=== PATIENT | male | born 1955 | race Hispanic/Latino ===

== ENCOUNTER 2016-12-27 17:48 | Observation (INO) | payer MEDICAID ==
[2016-12-27 18:25] LABS: BASO # 0.01 K/mm3 (0.0-2.0); BASO % 0.2 % (0.0-3.0); EOS % 0.6 % (1.5-5.0); GRAN # 3.22 (1.4-6.5); GRAN % 62.9 % (50.0-68.0); LYMPH # 1.3 (1.2-3.4); LYMPH % 25.8 % (22.0-35.0); MEAN CELL VOLUME 63.3 fl (80.0-105.0); MEAN CORPUSCULAR HEMOGLOBIN 20.7 pg (25.0-35.0); MEAN CORPUSCULAR HGB CONC 32.7 g/dl (31.0-37.0); MEAN PLATELET VOLUME 10.1 fl (7.0-11.0); MONO # 0.5 (0.1-0.6); MONO % 10.5 % (1.0-6.0); WHITE BLOOD COUNT 5.1 10^3/ul (4.5-11.0)
[2016-12-27 18:34] LABS: ALB/GLOB RATIO 1.5 (1.1-1.8); ALKALINE PHOSPHATASE 51 U/L (38-126); ALT/SGPT 28 U/L (7-56); AST/SGOT 19 U/L (17-59); BILIRUBIN,TOTAL 0.9 mg/dL (0.2-1.3); BLOOD UREA NITROGEN 23 mg/dL (7-21); CALCIUM 9.3 mg/dL (8.4-10.5); CARBON DIOXIDE 24 mmol/L (21-33); CHLORIDE 102 mmol/L (98-107); GFR AFRICAN-AMERICAN > 60; GLUCOSE,RANDOM 126 mg/dL (70-110); LIPASE 123 U/L (23-300); POTASSIUM 3.7 mmol/L (3.6-5.0); SODIUM 137 mmol/L (132-148); TOTAL PROTEIN 7.4 g/dL (5.8-8.3)
[2016-12-27 18:38] LABS: INR 1.16 (0.93-1.08); PARTIAL THROMBOPLASTIN TIME 26.2 Seconds (25.1-36.5)
[2016-12-27 18:45] LABS: TROPONIN I 0.03 ng/mL
--- NOTE | 2016-12-27 18:45 | ED PDOC ---
Arrival/HPI - General Chief Complaint: Chest Pain Time Seen by Provider: 12/27/16 17:50 Historian: Patient - History of Present Illness Narrative History of Present Illness (Text): 12/27/16 18:06 A 61 year old male, whose past medical history includes rheumatic fever, CABG, valve replacement, GERD, hypertension, and diabetes, presents to the emergency department complaining of epigastric pain beginning earlier today. Patient reports pain radiates to the chest. He had nausea earlier which resolved but the cp is still there. Patient states he experienced similar symptoms last week. He went to [facility] to have himself checked out, and results revealed it was a myocardial infarction. As a result, patient reports that he had 2 LAD stents placed in 5 days ago. Patient also notes experiencing nausea, but denies any vomiting, dizziness, or any other complaints at this time. No PMD Symptom Onset: Sudden Symptom Course: Unchanged Past Medical History - Provider Review Nursing Documentation Reviewed: Yes - Cardiac Hx AK: Yes Other/Comment: sx of aorta replacement valve - Psychiatric Hx Substance Use: No - Surgical History Hx Coronary Stent: Yes (x 4) Other/Comment: Cardiac bypass - Anesthesia Hx Anesthesia: Yes Hx Anesthesia Reactions: No Hx Malignant Hyperthermia: No Family/Social History - Physician Review Nursing Documentation Reviewed: Yes Family/Social History: No Known Family HX Smoking Status: Never Smoked Hx Alcohol Use: No Hx Substance Use: No Allergies/Home Meds Allergies/Adverse Reactions: Allergies No Known Allergies Allergy (Unverified 12/27/16 18:00) Home Medications: Home Meds Medication Instructions Recorded Confirmed Aspirin [Lo-Dose Aspirin EC] 81 mg PO DAILY 12/27/16 12/27/16 Clopidogrel [Plavix] 75 mg PO DAILY 12/27/16 12/27/16 Lisinopril [Zestril] 2.5 mg PO DAILY 12/27/16 12/27/16 Metoprolol Succinate [Toprol XL] 12.5 mg PO DAILY 12/27/16 12/27/16 Simvastatin [Zocor] 40 mg PO DAILY 12/27/16 12/27/16 Review of Systems - Physician Review All systems were reviewed & negative as marked: Yes - Review of Systems Cardiovascular: Chest Pain (radiating from epigastric pain) Gastrointestinal: Abdominal Pain (epigastric pain radiating to chest), Nausea. absent: Vomiting Neurological: absent: Dizziness Physical Exam Vital Signs Reviewed: Yes Vital Signs Temp Pulse Pulse Resp BP Pulse Ox 12/27/16 20:13 98.1 F 71 18 100 12/27/16 18:16 70 12/27/16 18:01 98.0 F 73 18 124/79 100 Temperature: Afebrile Blood Pressure: Normal Pulse: Regular Respiratory Rate: Normal Appearance: Positive for: Well-Appearing Pain Distress: None Mental Status: Positive for: Alert and Oriented X 3 - Systems Exam Head: Present: Atraumatic, Normocephalic Pupils: Present: PERRL Conjunctiva: Present: Normal Mouth: Present: Moist Mucous Membranes Pharnyx: Present: Normal. No: ERYTHEMA, EXUDATE Neck: Present: Normal Range of Motion Respiratory/Chest: Present: Clear to Auscultation, Good Air Exchange. No: Respiratory Distress, Accessory Muscle Use Cardiovascular: Present: Regular Rate and Rhythm, Normal S1, S2. No: Murmurs Abdomen: Present: Normal Bowel Sounds. No: Tenderness, Distention, Peritoneal Signs Back: Present: Normal Inspection Upper Extremity: Present: Normal Inspection. No: Cyanosis, Edema Lower Extremity: Present: Normal Inspection. No: Edema Neurological: Present: GCS=15, CN II-XII Intact, Speech Normal Skin: Present: Warm, Dry, Normal Color. No: Rashes Psychiatric: Present: Alert, Oriented x 3, Normal Insight, Normal Concentration Medical Decision Making ED Course and Treatment: 12/27/16 18:12 Impression: 61 year old male with epigastric pain radiating to chest. No acute findings on physical exam. Differential: GI vs ACS Plan: -- Chest X-ray -- Labs -- Protonix -- Urinalysis -- Reassess and disposition Progress Notes: 12/27/2016 18:55 Chest X-ray IMPRESSION: Cardiomegaly versus technical magnification. No pulmonary vascular derangement. Trace bilateral pleural effusions versus fibrosis. No definite airspace disease bilaterally. Dictator: Stiven Jim MD EKG: NSR @ 73 with LVH; QRS is 116 with normal axis; inverted T waves are present inferolaterally; no old ekg for comparison. 12/27/16 20:34 Patient given protonix and asa with improvement of symptoms. What is concerning is his recent history last week of similar symptoms which according to him was a AK requiring LAD stent placement. Patient with known CAD and recent AK with such chest pain will require further observation on tele and cardiology eval. Discussed with Dr. Dodd for placement on the hospitalist's service. - Lab Interpretations Lab Results: 12/27/16 18:11 12/27/16 18:11 Lab Results 12/27/16 18:11: Sodium 137, Potassium 3.7, Chloride 102, Carbon Dioxide 24, Anion Gap 15, BUN 23 H, Creatinine 0.8, Est GFR ( Amer) > 60, Est GFR ( Non-Af Amer) > 60, Random Glucose 126 H, Calcium 9.3, Magnesium 2.0, Total Bilirubin 0.9, AST 19, ALT 28, Alkaline Phosphatase 51, Lactate Dehydrogenase 374, Total Creatine Kinase 65, Troponin I 0.03, NT-Pro-B Natriuret Pep 237, Total Protein 7.4, Albumin 4.5, Globulin 2.9, Albumin/Globulin Ratio 1.5, Lipase 123 12/27/16 18:11: PT 12.7 H, INR 1.16 H, APTT 26.2 12/27/16 18:11: WBC 5.1, RBC 5.21, Hgb 10.8 L, Hct 33.0 L, MCV 63.3 L, MCH 20.7 L, MCHC 32.7, RDW 16.0 H, Plt Count 211, MPV 10.1, Gran % 62.9, Lymph % (Auto) 25.8, Mccone % (Auto) 10.5 H, Eos % (Auto) 0.6 L, Baso % (Auto) 0.2, Gran # 3.22, Lymph # 1.3, Mccone # 0.5, Eos # 0.0, Baso # 0.01 I have reviewed the lab results: Yes - RAD Interpretation Radiology Orders: 12/27/16 18:00 CHEST PORTABLE [RAD] Stat - Medication Orders Current Medication Orders: Discontinued Medications Aspirin (Aspirin Chewable) 324 mg PO STAT STA Stop: 12/27/16 19:44 Last Admin: 12/27/16 19:58 Dose: Not Given Non-Admin Reason: Patient Refused Pantoprazole Sodium (Protonix Inj) 40 mg IVP ONCE STA Stop: 12/27/16 18:02 Last Admin: 12/27/16 18:25 Dose: 40 mg IVP Administration Document 12/27/16 18:25 [email or web address] (Rec: 12/27/16 18:26 [email or web address] [facility] [id number]) Charges for Administration # of IVP Administrations 1 - Scribe Statement The provider has reviewed the documentation as recorded by the Sophia Gay Provider Scribe Attestation: All medical record entries made by the Scribe were at my direction and personally dictated by me. I have reviewed the chart and agree that the record accurately reflects my personal performance of the history, physical exam, medical decision making, and the department course for this patient. I have also personally directed, reviewed, and agree with the discharge instructions and disposition. Disposition/Present on Arrival - Present on Arrival Any Indicators Present on Arrival: No History of DVT/PE: No History of Uncontrolled Diabetes: No Urinary Catheter: No History of Decub. Ulcer: No History Surgical Site Infection Following: None - Disposition Have Diagnosis and Disposition been Completed?: Yes Diagnosis: Chest pain Disposition: HOSPITALIZED Disposition Time: 20:10 Patient Plan: Observation, Telemetry Condition: FAIR
--- NOTE | 2016-12-27 18:57 | RAD ---
HISTORY: cp COMPARISON: No prior. FINDINGS: LUNGS: No active pulmonary disease. PLEURA: Bilateral trace pleural effusions versus fibrosis blunts both costophrenic sulci. CARDIOVASCULAR: Prominent cardiac silhouette is questioned though they may be technically magnified. No pulmonary derangement appreciated. OSSEOUS STRUCTURES: No significant abnormalities. VISUALIZED UPPER ABDOMEN: Normal. OTHER FINDINGS: None. IMPRESSION: Cardiomegaly versus technical magnification. No pulmonary vascular derangement. Trace bilateral pleural effusions versus fibrosis. No definite airspace disease bilaterally.
[2016-12-27 19:57] LABS: URINE BILIRUBIN NEGATIVE (NEGATIVE); URINE BLOOD NEGATIVE (NEGATIVE); URINE GLUCOSE (UA) NEGATIVE (NEGATIVE); URINE KETONE NEGATIVE (NEGATIVE); URINE LEUKOCYTE ESTERASE NEGATIVE Leu/uL (NEGATIVE); URINE PROTEIN NEGATIVE mg/dL (<30 mg/dL); URINE UROBILINOGEN 0.2 E.U./dL (<1 E.U./dL)
[2016-12-27 20:00] LABS: URINE APPEARANCE CLEAR (CLEAR); URINE COLOR YELLOW (YELLOW)
--- NOTE | 2016-12-27 21:06 | CP.PCM.HP ---
<Ayo Schuler - Last Filed: 12/27/16 22:54> History of Present Illness - History of Present Illness History of Present Illness: 61 year old male with past medical history of Rheumatic fever as child, CABG, Aortic Valve replacement, GERD, HTN, DM presents to the ED with epigastric pain and slight chest discomfort. Patient states he was at work today around 6pm when he felt pins and needles in his stomach which he also felt chest discomfort with. He took pepcid but it did not help relieve the pain. Patient states he had a similar episode last week for which he went to [facility] and it was determined he had an MA. As a result, patient received two stents in the LAD. When the patient had the pain today, he was in hid way back to [facility] but the pain was so bad he could not continue to drive and came in. Patient states that along with the pain in the stomach he had some nausea, but denied any vomiting. Patient denies shortness of breath, vomiting, fever, sore throat, nausea, abdominal pain or recent sick contacts. Past Medical History: Rheumatic fever as child, CABG, Aortic Valve replacement, GERD, HTN, DM Past Surgery: CABG, Aortic Valve replacement, cardiac stents Allergies: denies Social: denies alcohol, tobacco or illicit drug use Family History: denies Medications: Protonix, Aspirin, Plavix, Metoprolol, Lisinopril, Simvastatin Present on Admission - Present on Admission Any Indicators Present on Admission: No Review of Systems - Constitutional Constitutional: Chills. absent: Fever, Headache - EENT Eyes: absent: Change in Vision, Diplopia Ears: absent: Ear Pain Nose/Mouth/Throat: absent: Nasal Discharge, Sore Throat - Cardiovascular Cardiovascular: Chest Pain. absent: Dyspnea, Palpitations, Radiating Pain, Rapid Heart Rate, Syncope Additional comments: Chest Discomfort - Respiratory Respiratory: absent: Cough, Dyspnea, Chest Congestion - Gastrointestinal Gastrointestinal: Abdominal Pain, Belching, Nausea. absent: Vomiting - Genitourinary Genitourinary: Change in Urinary Stream, Difficulty Urinating - Musculoskeletal Musculoskeletal: absent: Arthralgias, Muscle Weakness, Numbness, Radiating Pain into Limb, Tingling - Integumentary Integumentary: absent: Rash - Neurological Neurological: absent: Headaches, Paresthesias, Tingling Past Patient History - Past Social History Smoking Status: Never Smoked - CARDIAC Hx Heart Attack: Yes Other/Comment: sx of aorta replacement valve - PSYCHIATRIC Hx Substance Use: No - SURGICAL HISTORY Hx Coronary Stent: Yes (x 4) Other/Comment: Cardiac bypass - ANESTHESIA Hx Anesthesia: Yes Hx Anesthesia Reactions: No Hx Malignant Hyperthermia: No Meds Allergies/Adverse Reactions: Allergies Allergy/AdvReac Type Severity Reaction Status Date / Time No Known Allergies Allergy Unverified 12/27/16 18:00 Physical Exam - Constitutional Appears: Non-toxic, No Acute Distress - Head Exam Head Exam: ATRAUMATIC, NORMAL INSPECTION, NORMOCEPHALIC - Eye Exam Eye Exam: EOMI, Normal appearance, PERRL Pupil Exam: NORMAL ACCOMODATION, PERRL - ENT Exam ENT Exam: Mucous Membranes Moist, Normal Exam - Neck Exam Neck exam: Positive for: Normal Inspection - Respiratory Exam Respiratory Exam: Clear to Auscultation Bilateral, NORMAL BREATHING PATTERN - Cardiovascular Exam Cardiovascular Exam: REGULAR RHYTHM, +S1, +S2 - GI/Abdominal Exam GI & Abdominal Exam: absent: Distended, Guarding, Tenderness - Extremities Exam Extremities exam: Positive for: pedal pulses present. Negative for: pedal edema - Neurological Exam Neurological exam: Alert, Oriented x3 - Skin Additional comments: healed CABG scar on chest Results - Vital Signs Recent Vital Signs: Last Vital Signs Temp 98.1 F 12/27/16 20:13 Pulse 71 12/27/16 20:13 Resp 18 12/27/16 20:13 BP 124/79 12/27/16 18:01 Pulse Ox 100 12/27/16 20:13 - Labs Result Diagrams: 12/27/16 18:11 12/27/16 18:11 Labs: Laboratory Results - last 24 hr 12/27/16 12/27/16 19:47 19:47 Urine Color Yellow Urine Appearance Clear Urine pH 6.0 Ur Specific [place] 1.015 Urine Protein Negative Urine Glucose (UA) Negative Urine Ketones Negative Urine Blood Negative Urine Nitrate Negative Urine Bilirubin Negative Urine Urobilinogen 0.2 Ur Leukocyte Esterase Negative Urine Opiates Screen Negative Urine Methadone Screen Negative Ur Barbiturates Screen Negative Ur Phencyclidine Scrn Negative Ur Amphetamines Screen Negative U Benzodiazepines Scrn Negative U Oth Cocaine Metabols Negative U Cannabinoids Screen Negative Assessment & Plan - Assessment and Plan (Free Text) Assessment: 61 year old male with past medical history of Rheumatic fever as child, CABG, Aortic Valve replacement, GERD, HTN, DM presents to the ED with epigastric pain and slight chest discomfort. Plan: 1. Epigastric Pain with Chest Discomfort-rule out ACS -EKG ordered and obtained, pending official read, NSR 73 bpm, widened QRS -Chest Xray ordered and obtained, cardiomegaly, pending official read -CBC and CMP within normal limits -initial trop .02, will repeat serial x2 -Will follow serial EKG Q6 x2 -continue ASA, Plavix, Metoprolol, Simvastatin -cardiology consulted, Fernieh, follow up recs -lipd panel pending -TSH pending -A1c Pending 2. HTN -BP 124/79 -continue home medications 3. DM questionable -A1C pending -insulin sliding scale low with accuchecks 4. Constipation -Colace 200mg BID -Lactulose PRN 5. GI/DVT -pantoprazole -lovenox <Ciro Dodd Q - Last Filed: 12/28/16 04:20> History of Present Illness - History of Present Illness History of Present Illness: CC: Abdominal pain + Nausea worsening over the past 1 day Results - Vital Signs Recent Vital Signs: Last Vital Signs Temp 97.6 F 12/28/16 00:01 Pulse 62 12/28/16 02:00 Resp 20 12/28/16 00:01 BP 116/74 12/28/16 00:01 Pulse Ox 94 L 12/28/16 00:01 - Labs Result Diagrams: 12/27/16 18:11 12/27/16 18:11 Labs: Laboratory Results - last 24 hr 12/27/16 12/27/16 12/28/16 19:47 19:47 00:30 Troponin I 0.03 Urine Color Yellow Urine Appearance Clear Urine pH 6.0 Ur Specific [place] 1.015 Urine Protein Negative Urine Glucose (UA) Negative Urine Ketones Negative Urine Blood Negative Urine Nitrate Negative Urine Bilirubin Negative Urine Urobilinogen 0.2 Ur Leukocyte Esterase Negative Urine Opiates Screen Negative Urine Methadone Screen Negative Ur Barbiturates Screen Negative Ur Phencyclidine Scrn Negative Ur Amphetamines Screen Negative U Benzodiazepines Scrn Negative U Oth Cocaine Metabols Negative U Cannabinoids Screen Negative Attending/Attestation - Attestation I have personally seen and examined this patient.: Yes I have fully participated in the care of the patient.: Yes I have reviewed all pertinent clinical information: Yes Notes (Text): 12/28/16 04:17 I agree with the above mentioned note and exam by the resident with the addition /exception of the followin61 y/o male with PMHx Aortic valve replacement 2007 secondary to history of rheumatic fever as a child, htn, dyslipidemia, ?DM and CAD with recent PCI + 2 stents placed to the LAD 5 days prior came to the ED with the complaint of indigestion/chest discomfort and sharp abdominal pain. Patient will be observed for cp to r/o ACS or in-stent thrombosis. Thus far he has had 2 negative cardiac enzymes and his pain has subsided.
[2016-12-27 21:38] LABS: CHOLESTEROL 167 mg/dL (130-200)
[2016-12-27] MEDS ORDERED: Enoxaparin 40 mg Syringe SC SCH (22:00)
[2016-12-27] MEDS: Metoprolol Succinate 25 mg XL Tab PO SCH ×2 (22:02→22:06)
[2016-12-27] MEDS: Insulin Lispro (humaLOG) LOW Coverage SC SCH (23:01)
[2016-12-27 23:51] VITALS: BMI 27.3
[2016-12-28 00:30] VITALS: RESP 20
[2016-12-28] MEDS ORDERED: Pantoprazole 40 mg EC Tab PO SCH (06:00)
[2016-12-28 06:23] LABS: BASO # 0.02 K/mm3 (0.0-2.0); BASO % 0.3 % (0.0-3.0); EOS # 0.1 (0.0-0.7); EOS % 1.5 % (1.5-5.0); GRAN # 3.23 (1.4-6.5); GRAN % 47.6 % (50.0-68.0); HEMATOCRIT 34.1 % (42.0-52.0); LYMPH # 2.7 (1.2-3.4); LYMPH % 40.3 % (22.0-35.0); MEAN CORPUSCULAR HEMOGLOBIN 20.1 pg (25.0-35.0); MEAN PLATELET VOLUME 9.7 fl (7.0-11.0); MONO # 0.7 (0.1-0.6); MONO % 10.3 % (1.0-6.0); RED CELL DISTRIBUTION WIDTH 16.3 % (11.5-14.5); WHITE BLOOD COUNT 6.8 10^3/ul (4.5-11.0)
[2016-12-28 06:37] VITALS: O2SAT 93
[2016-12-28 06:44] LABS: ALB/GLOB RATIO 1.4 (1.1-1.8); ALKALINE PHOSPHATASE 46 U/L (38-126); ALT/SGPT 32 U/L (7-56); AST/SGOT 19 U/L (17-59); BLOOD UREA NITROGEN 19 mg/dL (7-21); CALCIUM 9.5 mg/dL (8.4-10.5); CARBON DIOXIDE 28 mmol/L (21-33); CHLORIDE 107 mmol/L (98-107); GFR AFRICAN-AMERICAN > 60; GLUCOSE,RANDOM 109 mg/dL (70-110); SODIUM 140 mmol/L (132-148); TOTAL PROTEIN 6.8 g/dL (5.8-8.3)
[2016-12-28 06:53] LABS: TROPONIN I 0.03 ng/mL
[2016-12-28] MEDS: Insulin Lispro (humaLOG) LOW Coverage SC SCH ×3 (07:58→17:42)
[2016-12-28] MEDS: Metoprolol Succinate 25 mg XL Tab PO SCH ×3 (09:51→18:18)
[2016-12-28] MEDS ORDERED: Enoxaparin 40 mg Syringe SC SCH (10:00)
--- NOTE | 2016-12-28 15:25 | CP.PCM.DIS ---
<Taj Sandoval - Last Filed: 12/28/16 18:11> Provider - Provider Date of Admission: 12/27/16 19:43 Attending physician: Thuan Elizabeth MD Primary care physician: No PMD Consults: Cardiology: Dr. Lizandro Estrada Time Spent in preparation of Discharge (in minutes): 25 Hospital Course - Lab Results Lab Results: Most Recent Lab Values WBC 6.8 10^3/ul (4.5-11.0) D 12/28/16 06:00 RBC 5.41 10^6/uL (3.5-6.1) 12/28/16 06:00 Hgb 10.9 g/dL (14.0-18.0) L 12/28/16 06:00 Hct 34.1 % (42.0-52.0) L 12/28/16 06:00 MCV 63.0 fl (80.0-105.0) L 12/28/16 06:00 MCH 20.1 pg (25.0-35.0) L 12/28/16 06:00 MCHC 32.0 g/dl (31.0-37.0) 12/28/16 06:00 RDW 16.3 % (11.5-14.5) H 12/28/16 06:00 Plt Count 201 10^3/uL (120.0-450.0) 12/28/16 06:00 MPV 9.7 fl (7.0-11.0) 12/28/16 06:00 Gran % 47.6 % (50.0-68.0) L 12/28/16 06:00 Lymph % (Auto) 40.3 % (22.0-35.0) H 12/28/16 06:00 [place] % (Auto) 10.3 % (1.0-6.0) H 12/28/16 06:00 Eos % (Auto) 1.5 % (1.5-5.0) 12/28/16 06:00 Baso % (Auto) 0.3 % (0.0-3.0) 12/28/16 06:00 Gran # 3.23 (1.4-6.5) 12/28/16 06:00 Lymph # 2.7 (1.2-3.4) 12/28/16 06:00 [place] # 0.7 (0.1-0.6) H 12/28/16 06:00 Eos # 0.1 (0.0-0.7) 12/28/16 06:00 Baso # 0.02 K/mm3 (0.0-2.0) 12/28/16 06:00 PT 12.7 SECONDS (9.4-12.5) H 12/27/16 18:11 INR 1.16 (0.93-1.08) H 12/27/16 18:11 APTT 26.2 Seconds (25.1-36.5) 12/27/16 18:11 Sodium 140 mmol/L (132-148) 12/28/16 06:00 Potassium 4.0 mmol/L (3.6-5.0) 12/28/16 06:00 Chloride 107 mmol/L (98-107) 12/28/16 06:00 Carbon Dioxide 28 mmol/L (21-33) 12/28/16 06:00 Anion Gap 10 (10-20) 12/28/16 06:00 BUN 19 mg/dL (7-21) 12/28/16 06:00 Creatinine 0.8 mg/dl (0.8-1.5) 12/28/16 06:00 Est GFR ( Amer) > 60 12/28/16 06:00 Est GFR (Non-Af Amer) > 60 12/28/16 06:00 POC Glucose (mg/dL) 108 mg/dL (65-110) 12/28/16 07:57 Random Glucose 109 mg/dL (70-110) 12/28/16 06:00 Hemoglobin A1c 8.0 % (4.2-6.5) H 12/27/16 18:11 Calcium 9.5 mg/dL (8.4-10.5) 12/28/16 06:00 Magnesium 2.0 mg/dL (1.7-2.2) 12/27/16 18:11 Total Bilirubin 1.0 mg/dL (0.2-1.3) 12/28/16 06:00 AST 19 U/L (17-59) 12/28/16 06:00 ALT 32 U/L (7-56) 12/28/16 06:00 Alkaline Phosphatase 46 U/L (38-126) 12/28/16 06:00 Lactate Dehydrogenase 374 U/L (333-699) 12/27/16 18:11 Total Creatine Kinase 65 U/L (35-230) 12/27/16 18:11 Troponin I 0.03 ng/mL 12/28/16 06:00 NT-Pro-B Natriuret Pep 237 pg/mL (0-450) 12/27/16 18:11 Total Protein 6.8 g/dL (5.8-8.3) 12/28/16 06:00 Albumin 3.9 g/dL (3.0-4.8) 12/28/16 06:00 Globulin 2.8 gm/dL 12/28/16 06:00 Albumin/Globulin Ratio 1.4 (1.1-1.8) 12/28/16 06:00 Triglycerides 82 mg/dL (35-160) 12/27/16 18:11 Cholesterol 167 mg/dL (130-200) 12/27/16 18:11 LDL Cholesterol Direct 114 mg/dL (0-129) 12/27/16 18:11 HDL Cholesterol 42 mg/dL (29-60) 12/27/16 18:11 Lipase 123 U/L (23-300) 12/27/16 18:11 TSH 3rd Generation 0.83 mIU/mL (0.46-4.68) 12/27/16 18:11 Urine Color Yellow (YELLOW) 12/27/16 19:47 Urine Appearance Clear (CLEAR) 12/27/16 19:47 Urine pH 6.0 (4.7-8.0) 12/27/16 19:47 Ur Specific [place] 1.015 (1.005-1.035) 12/27/16 19:47 Urine Protein Negative mg/dL (<30 mg/dL) 12/27/16 19:47 Urine Glucose (UA) Negative mg/dL (NEGATIVE) 12/27/16 19:47 Urine Ketones Negative mg/dL (NEGATIVE) 12/27/16 19:47 Urine Blood Negative (NEGATIVE) 12/27/16 19:47 Urine Nitrate Negative (NEGATIVE) 12/27/16 19:47 Urine Bilirubin Negative (NEGATIVE) 12/27/16 19:47 Urine Urobilinogen 0.2 E.U./dL (<1 E.U./dL) 12/27/16 19:47 Ur Leukocyte Esterase Negative Gerard/uL (NEGATIVE) 12/27/16 19:47 Urine Opiates Screen Negative (NEGATIVE) 12/27/16 19:47 Urine Methadone Screen Negative (NEGATIVE) 12/27/16 19:47 Ur Barbiturates Screen Negative (NEGATIVE) 12/27/16 19:47 Ur Phencyclidine Scrn Negative (NEGATIVE) 12/27/16 19:47 Ur Amphetamines Screen Negative (NEGATIVE) 12/27/16 19:47 U Benzodiazepines Scrn Negative (NEGATIVE) 12/27/16 19:47 U Oth Cocaine Metabols Negative (NEGATIVE) 12/27/16 19:47 U Cannabinoids Screen Negative (NEGATIVE) 12/27/16 19:47 - Hospital Course Hospital Course: Patient is a 61 year old male with past medical history of Rheumatic fever as child, GERD, HTN, DM, CABGx2(2007), Aortic Valve replacement with bioprosthetic valve(2007), CAD s/p stents x 2(2003) and recent TX within the past week requiring 2 stents to the LAD who presented to the ED with epigastric pain and slight chest discomfort. The patient was evaluated and admitted for chest pain rule out ACS. On admission CXR showed cardiomegaly versus technical magnification and no pulmonary vascular derangement as well as trace bilateral pleural effusions versus fibrosis. An EKG on admission showed sinus rhythm with first degree AV block with T wave inversions in II, III, avF, V5, V6, with possible lateral ischemia. Serial troponins were conducted and were negative x 3 with no acute changes in serial EKGs. Echocardiogram was conducted showing EF of 42%. Cardiology with Dr. Palomares was consulted with recommendations of cardiac cath vs. outpatient follow up with continuation of current cardiac medications. A discussion was conducted with the patient in regards to the cardiology recommendations. The patient was presented with the option for staying in the hospital at least another 24 hours for cardiac cath the following morning or to be discharged home with instructions to follow up with his lamination machine operator in 24 hours and to continue his home medications. The patient was educated on the risks and benefits of both choices and decided to opt for discharge to home with follow up outpatient. Patient was instructed to follow up outpatient with his lamination machine operator, event coordinator and to establish with primary medical doctor. Patient was understanding and agreeable to discharge instructions. - Date & Time of H&P Date of H&P: 12/27/16 Time of H&P: 21:01 Discharge Exam - Head Exam Head Exam: ATRAUMATIC, NORMAL INSPECTION, NORMOCEPHALIC - Eye Exam Eye Exam: EOMI, PERRL - ENT Exam ENT Exam: Mucous Membranes Moist - Neck Exam Neck exam: Full Rom - Respiratory Exam Respiratory Exam: Clear to PA & Lateral, NORMAL BREATHING PATTERN, UNREMARKABLE - Cardiovascular Exam Cardiovascular Exam: REGULAR RHYTHM, RRR, +S1, +S2, Systolic Murmur (grade 2/6) . absent: Clicks, Irregular Rhythm, JVD, Rubs - GI/Abdominal Exam GI & Abdominal Exam: Normal Bowel Sounds, Soft. absent: Distended, Rebound, Rigid - Extremities Exam Extremities exam: normal capillary refill, normal inspection, pedal pulses present - Back Exam Back exam: NORMAL INSPECTION. absent: CVA tenderness (L), CVA tenderness (R) - Neurological Exam Neurological exam: Alert, CN II-XII Intact, Normal Gait, Oriented x3, Reflexes Normal - Psychiatric Exam Psychiatric exam: Normal Affect, Normal Mood - Skin Skin Exam: Dry, Intact, Normal Color, Warm Discharge Plan - Follow Up Plan Condition: FAIR Disposition: HOME/ ROUTINE Instructions: Chest Pain (GEN), Heart Healthy Diet (DC), Panic Attack (GEN) Additional Instructions: 1. Follow up with your primary medical doctor with in a week of your discharge 2. Follow up with your lamination machine operator within 24 hours of discharge from hospital 3. Follow up with your event coordinator 4. Take medications prescribed to you as instructed 5. Please maintain a carb consistent and heart healthy diet 6. Return to the hospital or nearest emergency room if your symptoms worsen or return <Thuan Elizabeth - Last Filed: 12/29/16 16:08> Provider - Provider Date of Admission: 12/27/16 19:43 Attending physician: Thuan Elizabeth MD Hospital Course - Lab Results Lab Results: Most Recent Lab Values WBC 6.8 10^3/ul (4.5-11.0) D 12/28/16 06:00 RBC 5.41 10^6/uL (3.5-6.1) 12/28/16 06:00 Hgb 10.9 g/dL (14.0-18.0) L 12/28/16 06:00 Hct 34.1 % (42.0-52.0) L 12/28/16 06:00 MCV 63.0 fl (80.0-105.0) L 12/28/16 06:00 MCH 20.1 pg (25.0-35.0) L 12/28/16 06:00 MCHC 32.0 g/dl (31.0-37.0) 12/28/16 06:00 RDW 16.3 % (11.5-14.5) H 12/28/16 06:00 Plt Count 201 10^3/uL (120.0-450.0) 12/28/16 06:00 MPV 9.7 fl (7.0-11.0) 12/28/16 06:00 Gran % 47.6 % (50.0-68.0) L 12/28/16 06:00 Lymph % (Auto) 40.3 % (22.0-35.0) H 12/28/16 06:00 [place] % (Auto) 10.3 % (1.0-6.0) H 12/28/16 06:00 Eos % (Auto) 1.5 % (1.5-5.0) 12/28/16 06:00 Baso % (Auto) 0.3 % (0.0-3.0) 12/28/16 06:00 Gran # 3.23 (1.4-6.5) 12/28/16 06:00 Lymph # 2.7 (1.2-3.4) 12/28/16 06:00 [place] # 0.7 (0.1-0.6) H 12/28/16 06:00 Eos # 0.1 (0.0-0.7) 12/28/16 06:00 Baso # 0.02 K/mm3 (0.0-2.0) 12/28/16 06:00 PT 12.7 SECONDS (9.4-12.5) H 12/27/16 18:11 INR 1.16 (0.93-1.08) H 12/27/16 18:11 APTT 26.2 Seconds (25.1-36.5) 12/27/16 18:11 Sodium 140 mmol/L (132-148) 12/28/16 06:00 Potassium 4.0 mmol/L (3.6-5.0) 12/28/16 06:00 Chloride 107 mmol/L (98-107) 12/28/16 06:00 Carbon Dioxide 28 mmol/L (21-33) 12/28/16 06:00 Anion Gap 10 (10-20) 12/28/16 06:00 BUN 19 mg/dL (7-21) 12/28/16 06:00 Creatinine 0.8 mg/dl (0.8-1.5) 12/28/16 06:00 Est GFR ( Amer) > 60 12/28/16 06:00 Est GFR (Non-Af Amer) > 60 12/28/16 06:00 POC Glucose (mg/dL) 139 mg/dL (65-110) H 12/28/16 11:31 Random Glucose 109 mg/dL (70-110) 12/28/16 06:00 Hemoglobin A1c 8.0 % (4.2-6.5) H 12/27/16 18:11 Calcium 9.5 mg/dL (8.4-10.5) 12/28/16 06:00 Magnesium 2.0 mg/dL (1.7-2.2) 12/27/16 18:11 Total Bilirubin 1.0 mg/dL (0.2-1.3) 12/28/16 06:00 AST 19 U/L (17-59) 12/28/16 06:00 ALT 32 U/L (7-56) 12/28/16 06:00 Alkaline Phosphatase 46 U/L (38-126) 12/28/16 06:00 Lactate Dehydrogenase 374 U/L (333-699) 12/27/16 18:11 Total Creatine Kinase 65 U/L (35-230) 12/27/16 18:11 Troponin I 0.03 ng/mL 12/28/16 06:00 NT-Pro-B Natriuret Pep 237 pg/mL (0-450) 12/27/16 18:11 Total Protein 6.8 g/dL (5.8-8.3) 12/28/16 06:00 Albumin 3.9 g/dL (3.0-4.8) 12/28/16 06:00 Globulin 2.8 gm/dL 12/28/16 06:00 Albumin/Globulin Ratio 1.4 (1.1-1.8) 12/28/16 06:00 Triglycerides 82 mg/dL (35-160) 12/27/16 18:11 Cholesterol 167 mg/dL (130-200) 12/27/16 18:11 LDL Cholesterol Direct 114 mg/dL (0-129) 12/27/16 18:11 HDL Cholesterol 42 mg/dL (29-60) 12/27/16 18:11 Lipase 123 U/L (23-300) 12/27/16 18:11 TSH 3rd Generation 0.83 mIU/mL (0.46-4.68) 12/27/16 18:11 Urine Color Yellow (YELLOW) 12/27/16 19:47 Urine Appearance Clear (CLEAR) 12/27/16 19:47 Urine pH 6.0 (4.7-8.0) 12/27/16 19:47 Ur Specific [place] 1.015 (1.005-1.035) 12/27/16 19:47 Urine Protein Negative mg/dL (<30 mg/dL) 12/27/16 19:47 Urine Glucose (UA) Negative mg/dL (NEGATIVE) 12/27/16 19:47 Urine Ketones Negative mg/dL (NEGATIVE) 12/27/16 19:47 Urine Blood Negative (NEGATIVE) 12/27/16 19:47 Urine Nitrate Negative (NEGATIVE) 12/27/16 19:47 Urine Bilirubin Negative (NEGATIVE) 12/27/16 19:47 Urine Urobilinogen 0.2 E.U./dL (<1 E.U./dL) 12/27/16 19:47 Ur Leukocyte Esterase Negative Gerard/uL (NEGATIVE) 12/27/16 19:47 Urine Opiates Screen Negative (NEGATIVE) 12/27/16 19:47 Urine Methadone Screen Negative (NEGATIVE) 12/27/16 19:47 Ur Barbiturates Screen Negative (NEGATIVE) 12/27/16 19:47 Ur Phencyclidine Scrn Negative (NEGATIVE) 12/27/16 19:47 Ur Amphetamines Screen Negative (NEGATIVE) 12/27/16 19:47 U Benzodiazepines Scrn Negative (NEGATIVE) 12/27/16 19:47 U Oth Cocaine Metabols Negative (NEGATIVE) 12/27/16 19:47 U Cannabinoids Screen Negative (NEGATIVE) 12/27/16 19:47 Attending/Attestation - Attestation I have personally seen and examined this patient.: Yes I have fully participated in the care of the patient.: Yes I have reviewed all pertinent clinical information, including history, physical exam and plan: Yes Notes (Text): 12/29/16 16:08 Patient was seen and examined with medical reimbursement specialist. Agreed with resident assessment and plan. 61 year old male with past medical history of CAD,SPCABGx2(2007), Aortic Valve replacement with bio prosthetic valve(2007), recent TX and stents to the LAD , HTN, DM, Peptic ulcer disease was admitted with chest pain , troponins are normal. Patient is pain free. He was evaluated by cardiology and cardiac cauterization was offered. Patient has refused and wants to follow up with his own lamination machine operator. He is ambulatory. He will be discharged home and will follow up with his lamination machine operator. Management plan was discussed in detail with patient Education was provided.
--- NOTE | 2016-12-28 16:15 | CARD ---
APPROVED REPORT EXAM: Two-dimensional and M-mode echocardiogram with Doppler and color Doppler. INDICATION Chest Pain 2D DIMENSIONS Left Atrium (2D)4.3 (1.6-4.0cm)IVSd1.3 (0.7-1.1cm) LVDd4.7 (3.9-5.9cm)PWd1.8 (0.7-1.1cm) LVDs3.7 (2.5-4.0cm)FS (%) 21.2 % LVEF (%)42.8 (>50%) M-Mode DIMENSIONS Aortic Root2.70 (2.2-3.7cm)Aortic Cusp Exc.1.20 (1.5-2.0cm) Aortic Valve AoV Peak [id number]/Noah Peak GR.14mmHg Mitral Valve E/A ratio0.0 TDI E/Lateral E'0.0E/Medial E'0.0 Tricuspid Valve TR Peak [id number] [id number] Peak Gr.27mmHg [id number] LEFT VENTRICLE The left ventricle is normal size. There is mild concentric left ventricular hypertrophy. The systolic function is moderately impaired. There is global hypokinesis of the left ventricle. Transmitral Doppler flow pattern is Grade I-abnormal relaxation pattern. RIGHT VENTRICLE The right ventricle is normal size. There is normal right ventricular wall thickness. The right ventricular systolic function is normal. ATRIA The left atrium is borderline dilated. The right atrium is borderline dilated. AORTIC VALVE No aortic regurgitation is present. Aortic valve opening cannot be assessed due to imaging artifacts from the prosthesis. MITRAL VALVE The mitral valve is moderately thickened. Mitral regurgitation is moderate. TRICUSPID VALVE The tricuspid valve is normal in structure. There is mild tricuspid regurgitation. There is mild pulmonary hypertension. GREAT VESSELS The aortic root is normal in size. The IVC is normal in size and collapses >50% with inspiration. PERICARDIAL EFFUSION There is no pericardial effusion. <Conclusion> The left ventricle is normal size. There is mild concentric left ventricular hypertrophy. The systolic function is moderately impaired. There is global hypokinesis of the left ventricle. Transmitral Doppler flow pattern is Grade I-abnormal relaxation pattern. Mitral regurgitation is moderate. There is mild pulmonary hypertension.
--- NOTE | 2016-12-28 17:15 | CARD ---
APPROVED REPORT EKG Measurement Heart [id number] <Conclusion> Sinus rhythm with 1st degree AV block Possible Inferior infarct, age undetermined ST & T wave abnormality, consider lateral ischemia Abnormal ECG
--- NOTE | 2016-12-28 17:15 | CARD ---
APPROVED REPORT EKG Measurement Heart [id number] <Conclusion> Sinus rhythm with 1st degree AV block Possible Inferior infarct, age undetermined ST & T wave abnormality, consider lateral ischemia Abnormal ECG
--- NOTE | 2016-12-28 17:19 | CARD ---
APPROVED REPORT EKG Measurement Heart [id number] <Conclusion> Normal sinus rhythm Left ventricular hypertrophy with QRS widening and repolarization abnormality Cannot rule out Inferior infarct, age undetermined Abnormal ECG
[2016-12-28 17:31] VITALS: BP 103/66; PULSE 63; TEMP 98.4
--- NOTE | 2016-12-29 09:53 | CON ---
CARDIOLOGY CONSULTATION DATE: REASON FOR CONSULTATION: Chest pain. HISTORY OF PRESENT ILLNESS: The patient is a 61-year-old male originally from [facility], has a history of rheumatic heart disease, underwent aortic valve replacement and double coronary artery bypass in 2007. The patient had a bioprosthetic valve at the time. The patient also recently required two coronary stents to the LAD in [facility] and was discharged on aspirin and Plavix. The patient presented because of what he describes as a stomach discomfort, and because of him panicking, he came to the Emergency Room. It was reported by the Emergency Room notes that the patient had chest pain. The patient denied to me having chest pain. SOCIAL HISTORY: Nonsmoker. MEDICATIONS: Aspirin 81 mg once a day, Lipitor 20 mg once a day, Lovenox 40 mg subcutaneously once a day, Plavix 75 mg once a day, Protonix 40 mg p.o. once a day, Toprol-XL 12.5 mg twice a day, Zestril 2.5 mg once a day. REVIEW OF SYSTEMS: No fever or chills. No vomiting or diarrhea. No dizziness or syncope. PHYSICAL EXAMINATION: GENERAL: The patient is a middle-aged male who does not appear to be in acute distress. VITAL SIGNS: Blood pressure 99/60, heart rate is 63, temperature 98.5, respirations 20. HEENT: Normocephalic. CHEST: Clear. HEART: S1 and S2 are regular. EXTREMITIES: No edema . LABORATORY DATA: Today, SMA-7 is within normal limits. Three sets of troponins were steady at 0.03. Lipid profile is within normal limits. TSH level is within normal limits. Hemoglobin and hematocrit 10.9 and 34.1. White count and platelet count are within normal limits. EKG, normal sinus rhythm, LVH with repolarization changes, cannot rule out anterior infarct of indeterminate age. ASSESSMENT: 1. Purported chest pain, myocardial infarction was ruled out. 2. History of recent stenting to the left anterior descending. The patient has been compliant with his antiplatelet therapy. 3. History of bioprosthetic aortic valve replacement for rheumatic valvular disease in 2007. RECOMMENDATIONS: Continue current Zestril 2.5 mg once a day, Toprol-XL 12.5 mg twice a day, Plavix 75 mg once a day, Lipitor 20 mg once a day, aspirin 81 mg once a day. I will review the echocardiographic study performed today. Lizandro Estrada MD
== END 2016-12-28 19:19 | disposition home or self-care (01) ==
LOC: ED 17:48 → ERH 19:43 → 3RSO 22:35
PROVIDERS: ADMIT Internal Medicine; ATTEND Internal Medicine
DX: R07.89 Other chest pain (principal); I10 Essential (primary) hypertension; K21.9 Gastro-esophageal reflux disease without esophagitis; E11.9 Type 2 diabetes mellitus without complications; K59.00 Constipation, unspecified; I25.2 Old myocardial infarction; Z95.5 Presence of coronary angioplasty implant and graft; Z95.3 Presence of xenogenic heart valve; Z95.1 Presence of aortocoronary bypass graft; Z79.82 Long term (current) use of aspirin
CPT/HCPCS: 36415; 71010; 80053; 80061; 80324; 80345; 80346; 80349; 80353; 80358; 80361; 81003; 82550; 82948; 83036; 83615; 83690; 83735; 83880; 83992; 84443; 84484; 85025; 85610; 85730; 93005; 93306; 96374; 99285; C9113; G0378